=== PATIENT | female | born 1990 | race Caucasian/White ===

== ENCOUNTER 2018-05-06 07:33 | Emergency (ER) | payer OTHER ==
[~2018-05-06] VITALS: Ht 152.4 cm; Wt 49.9 kg
[~2018-05-06 07:33] MED LIST: BACTRIM DS 8001 TAB PO; MIRENA52 MG
[2018-05-06 08:37] LABS: ABSOLUTE BASOPHIL COUNT 0 /CUMM (0.0-0.2); ABSOLUTE EOSINOPHIL COUNT 0.2 /CUMM (0.0-0.7); ABSOLUTE GRANULOCYTE CT 5.9 /CUMM (1.4-6.5); ABSOLUTE LYMPH COUNT 3.1 /CUMM (1.2-3.4); ABSOLUTE MONOCYTE COUNT 0.7 /CUMM (0.10-0.60); BASOPHIL % 0.3 % (0.0-2.0); EOSINOPHIL % 1.5 % (0-5); GRANULOCYTE % 59.9 % (42.2-75.2); HEMATOCRIT 42.4 % (37-47); MEAN CORPUSCULAR HGB 30.7 PG (27.0-31.0); MEAN CORPUSCULAR HGB CONC 33.9 G/DL (33.0-37.0); MEAN CORPUSCULAR VOLUME 90.6 FL (81.0-99.0); MEAN PLATELET VOLUME 7.4 FL (7.4-10.4); PLATELET COUNT 282 /CUMM (130-400); RED BLOOD CELL CT 4.69 /CUMM (4.20-5.40); WHITE BLOOD CELL COUNT 9.9 /CUMM (4.8-10.8)
--- NOTE | 2018-05-06 08:54 | ED GI/GU/ABDOMINAL COMPLAINT ---
History of Present Illness General Chief Complaint: Abdominal Pain/Flank Pain Stated Complaint: HEMORRHOID PAIN, ABD CRAMPING, CONSTIPATION Source: patient, old records Exam Limitations: no limitations Vital Signs & Intake/Output Vital Signs & Intake/Output Vital Signs Date Time Temp Pulse Resp B/P B/P Pulse O2 O2 Flow FiO2 Mean Ox Delivery Rate 05/06 1415 98.9 75 18 109/65 100 Room Air 05/06 1310 96.4 76 18 126/84 98 Room Air 05/06 0814 98.6 05/06 0739 98.6 90 18 102/66 98 Room Air Allergies Coded Allergies: NO KNOWN ALLERGIES (08/11/14) Reconcile Medications Levonorgestrel (Mirena) (Unknown Strength) IUD (Unknown Dose) CONTROL ( Reported) Sulfamethoxazole/Trimethopri (Bactrim Ds 800 MG-160 MG) 1 TAB TAB 1 TAB PO BID URINARY TRACT INFECTION Triage Note: 28 YO FEMALE TO TRIAGE FOR EVAL OF HEMMRROIDS AND CONSTIPATION SINCE MONDAY. STATES SAW HER DR WHO GAVE HER A CREAM WITHOUT ANY RELIEF. STATES +ABD CRAMPING. STATES TAKES MIRALX DAILY WITHOUT RELIEF OF CONSTIPATION S/S. Triage Nurses Notes Reviewed? yes LMP (ages 10-50): unknown ? n Is pt currently ? No Onset: 6 days Duration: day(s):, continues in ED, waxing and waning Timing: recent history Quality/Severity: cramping, fullness, severe Location: left lower quadrant, right lower quadrant Radiation: no radiation Activities at Onset: rest Prior Abdominal Problems: similar symptoms Past Sexual History: Unobtainable at this time Modifying Factors: Worsens With: defecating. Associated Symptoms: abdominal pain, loss of appetite HPI: 6 days prior to admission patient reports passing pebble-like stool. Since this time she has not been able to pass her bowels complaining of lower abdominal cramping decreased appetite and hemorrhoidal discomfort. She denies fever chills chest pain cough shortness of breath nausea vomiting diarrhea headache dysuria rash bleeding regnancy. Past History Travel History Traveled to [place] past 21 day No Medical History Any Pertinent Medical History? see below for history Neurological: NONE EENT: NONE Cardiovascular: NONE Respiratory: NONE Gastrointestinal: NONE Hepatic: NONE Renal: NONE Musculoskeletal: NONE Psychiatric: NONE Endocrine: NONE Blood Disorders: NONE Cancer(s): NONE [employer] INSPECTOR/Reproductive: NONE Influenza Vaccine: 07/10/14 Surgical History Surgical History: non-contributory Psychosocial History What is your primary language Citizen [place] Tobacco Use: Never used Family History Hx Contributory? No Review of Systems Review of Systems Constitutional: Reports: no symptoms. EENTM: Reports: no symptoms. Respiratory: Reports: no symptoms. Cardiovascular: Reports: no symptoms. GI: Reports: see HPI, abdominal pain, constipation. Genitourinary: Reports: no symptoms. Musculoskeletal: Reports: no symptoms. Skin: Reports: no symptoms. Neurological/Psychological: Reports: no symptoms. Hematologic/Endocrine: Reports: no symptoms. Immunologic/Allergic: Reports: no symptoms. All Other Systems: Reviewed and Negative Physical Exam Physical Exam General Appearance: well developed/nourished, alert, awake, anxious, moderate distress, thin Head: atraumatic, normal appearance Eyes: Bilateral: normal appearance, PERRL, EOMI, normal inspection. Ears, Nose, Throat, Mouth: hearing grossly normal, moist mucous membrane Neck: normal inspection, supple, full range of motion, normal alignment Respiratory: normal breath sounds, chest non-tender, no respiratory distress, quiet respiration, lungs clear Cardiovascular: regular rate/rhythm, normal peripheral pulses, norml femoral pulses equa Peripheral Pulses: 4+ carotid (R), 4+ carotid (L) Gastrointestinal: normal bowel sounds, soft, non-tender, no organomegaly Rectal: fecal impaction, hemmorrhoids Back: normal inspection, normal range of motion Extremities: normal range of motion, no ligament instability Neurologic/Psych: no motor/sensory deficits, awake, alert, oriented x 3, normal gait Skin: intact, normal color, warm/dry Core Measures ACS in differential dx? No Sepsis Present: No Sepsis Focused Exam Completed? No Progress Differential Diagnosis: bowel obstruction, inflamm bowel dis, SBO Plan of Care: Orders Procedure Date/time Status Enema 05/06 1416 Active Enema 05/06 1021 Active Enema 05/06 0953 Active LIPASE 05/06 08 Complete HUMAN BETA HCG SCREEN 05/06 08 Complete COMPREHENSIVE METABOLIC PANEL 05/06 08 Complete CBC WITHOUT DIFFERENTIAL 05/06 08 Complete Laboratory Tests 05/06/18 0807: Anion Gap 9, Estimated GFR > 60, BUN/Creatinine Ratio 23.3, Glucose 85, Calcium 9.8, Total Bilirubin 0.4, AST 25, ALT 26, Alkaline Phosphatase 80, Total Protein 8.1, Albumin 4.7, Globulin 3.4, Albumin/Globulin Ratio 1.4, Lipase 62, Total Beta HCG NEGATIVE, CBC w Diff NO MAN DIFF REQ, RBC 4.69, MCV 90.6, MCH 30.7, MCHC 33.9, RDW 14.0, MPV 7.4, Gran % 59.9, Lymphocytes % 31.6, Monocytes % 6.7, Eosinophils % 1.5, Basophils % 0.3, Absolute Granulocytes 5.9, Absolute Lymphocytes 3.1, Absolute Monocytes 0.7 H, Absolute Eosinophils 0.2, Absolute Basophils 0 Diagnostic Imaging: Viewed by Me: Radiology Read. Discussed w/RAD: Radiology Read. Radiology Impression: Moderate constipation without any signs of obstruction, air-fluid levels or free air. Initial ED EKG: none Departure Departure Time of Disposition: 1450 Disposition: HOME OR SELF CARE Condition: Stable Clinical Impression Primary Impression: Constipation Secondary Impressions: Hemorrhoid Referrals: Sae BOLAND,Fina Miles APRN (PCP/Family) Departure Forms: Customer Survey General Discharge Information Prescriptions: Current Visit Scripts Peg 3350/Na Sulf,Bicarb,Cl/KCl (Golytely Solution) 8 OZ PO SEE ADMIN CRITERIA #1 GAL 8 oz every 10 minutes until rectal effluent runs clear Pramoxine HCl/Zinc Oxide (Tronolane Cream) 1 JULIANA FL 5 TIMES A DAY PRN hemorrhoid pain #30 GM Ref 3 Anusol Hc (Anusol-Hc) 1 SUP RC BID #28 SUP Procedures Procedural Sedation Sedation Type: moderate Indication: disimpaction Prior Complications: procedural sedation ASA Classification: P1 Airway: normal anatomy Mallampati Classification: Class 1 Preparation: plan explained to patient, plan explained to parent, hospital consent signed, oximetry during procedure, IV access obtained, suction immediately avail, case monitor used Sedation: etomidate, fentanyl Complications During/After Procedure: none Post Sedation Score: see sedation record I personally performed: sedation, procedure Intra-Service Time: 30 minutes or less Additional Procedures Additional Procedures: manual stool disimpaction Progress: tolerated without difficulty Critical Care Note Critical Care Note Critical Care Time: 30-74 min (40)
--- NOTE | 2018-05-06 09:53 | RADIOLOGY REPORT ---
EXAMINATION: XR ABDOMEN MULTIPLE VIEWS CLINICAL INDICATION: Constipation. No stool 6 days with lower abdominal pain. COMPARISON: None TECHNIQUE: 2 views of the abdomen. FINDINGS: There is moderate stool seen throughout the colon without any significant bowel distention, air-fluid levels or free air. Incidental finding of an IUD in the pelvis and 2 ring structures in the pelvis, unknown etiology. No gross bony abnormality. IMPRESSION: Moderate constipation without any signs of obstruction, air-fluid levels or free air.
[2018-05-06] MEDS ORDERED: TRONOLANE PR (14:58)
[2018-05-06] MEDS ORDERED: ANUSOL-HC25 M1 RC (14:58)
[2018-05-06] MEDS ORDERED: GOLYTELY SOLU4000 ML PO (14:58)
[2018-05-06] MEDS ORDERED: NUPERCAINAL56.7 GM PR (15:36)
[2018-05-06] MEDS ORDERED: LIDOCAINE-HC 2100 GM PR (15:36)
[2018-05-06 16:00] VITALS: BP 106/84
== END 2018-05-06 16:00 ==
LOC: ERH 07:33
PROVIDERS: Emergency Medicine
DX: K59.00 Constipation, unspecified (principal); K64.9 Unspecified hemorrhoids; R10.30 Lower abdominal pain, unspecified
CPT/HCPCS: 74021; 96361; 96374; J0131